=== PATIENT | male | born 1970 | race Caucasian/White ===

== ENCOUNTER 2018-09-12 14:20 | Emergency (ER) | payer OTHER ==
[~2018-09-12] VITALS: Ht 190.5 cm; Wt 117.9 kg
[2018-09-12] MEDS ORDERED: PERCOCET 5-3251 EACH PO (16:56)
== END 2018-09-12 19:42 | disposition home or self-care (01) ==
LOC: ER 14:20
DX: S82.141A Displaced bicondylar fracture of right tibia, initial encounter for closed fracture (principal); S00.01XA Abrasion of scalp, initial encounter; V49.49XA Driver injured in collision with other motor vehicles in traffic accident, initial encounter; Y93.89 Activity, other specified; Y92.410 Unspecified street and highway as the place of occurrence of the external cause; Y99.8 Other external cause status

== ENCOUNTER 2018-09-19 09:22 | Inpatient (IN) | payer OTHER ==
[2018-09-19] VITALS (8 sets, daily range): BP systolic 140–205; BP diastolic 88–127
[~2018-09-19] VITALS: Ht 182.9 cm; Wt 120.4 kg
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
[~2018-09-19 09:22] MED LIST: PERCOCET 5-3251 EACH PO
[2018-09-19 10:30] LABS: BE(vivo) -5.9 mmol/L (-2 to +3); HCO3 20.5 mmol/L (22.0-26.0); PO2 74.4 mmHg (80.0-100.0); sO2 93.3 % (92.0-98.0)
[2018-09-19 10:32] LABS: pH 7.287 (7.360-7.450)
[2018-09-19 12:01] LABS: BE(vivo) -6.3 mmol/L (-2 to +3); HCO3 17.9 mmol/L (22.0-26.0); PCO2 31.8 mmHg (35.0-45.0); PO2 70.5 mmHg (80.0-100.0); pH 7.369 (7.360-7.450)
[2018-09-20] VITALS (7 sets, daily range): BP systolic 137–160; BP diastolic 86–99
[2018-09-21 03:30] VITALS: BP 160/92
[2018-09-21 07:33] VITALS: BP 148/94
[2018-09-21 12:30] VITALS: BP 150/99
[2018-09-21 17:22] VITALS: BP 149/96
[2018-09-21 19:39] VITALS: BP 153/99
[2018-09-21 23:31] VITALS: BP 142/93
[2018-09-22 04:58] VITALS: BP 145/93
[2018-09-22 06:01] LABS: CHOLESTEROL 161 mg/dL (<200); HDL CHOLESTEROL 36 mg/dL (>40); LDL CHOLESTEROL 108 mg/dL (<100); TC:HDL 4.5 Ratio (Not establshd); TRIGLYCERIDE 86 mg/dL (<150); VLDL 17 mg/dL (<40)
[2018-09-22 06:04] LABS: SERUM ASSESSMENT Clear
[2018-09-22 07:39] VITALS: BP 135/92
[2018-09-22] MEDS ORDERED: PERCOCET 10-321 EACH PO (15:26)
[2018-09-22] MEDS ORDERED: CARDIZEM CD 18180 M3 PO (15:26)
[2018-09-22] MEDS ORDERED: ELIQUIS5 MG PO (15:26)
[2018-09-22 16:02] VITALS: BP 135/92
== END 2018-09-22 16:56 | disposition home or self-care (01) | DRG 492 ==
LOC: OR 09:22 → TBA 09:23 → 3W 14:48 → OR 14:49 → 3W 14:49 → OR 16:20 → ENTRNSPT 09-22 16:42 → 3W 09-22 16:56
PROVIDERS: Internal Medicine; Orthopaedic Surgery; Student in an Organized Health Care Education/Training Program
PROC: 0QSG04Z Reposition Right Tibia with Internal Fixation Device, Open Approach (ICD-10-PCS; principal; 2018-09-19)
DX: S82.141A Displaced bicondylar fracture of right tibia, initial encounter for closed fracture (principal); J96.01 Acute respiratory failure with hypoxia; I26.99 Other pulmonary embolism without acute cor pulmonale; I16.1 Hypertensive emergency; I10 Essential (primary) hypertension; S82.401A Unspecified fracture of shaft of right fibula, initial encounter for closed fracture; V89.2XXA Person injured in unspecified motor-vehicle accident, traffic, initial encounter; Z87.891 Personal history of nicotine dependence; Y93.89 Activity, other specified; Y92.89 Other specified places as the place of occurrence of the external cause; Y99.8 Other external cause status; Z82.49 Family history of ischemic heart disease and other diseases of the circulatory system
CPT/HCPCS: 10879; 50010; 50101; 50386; 50679; 51014; 51332; 51412; 51495; 53347; 56525; 57091; 62110; 62900; 64043; 65060; 70005